=== PATIENT | female | born 1995 | race Caucasian/White ===

== ENCOUNTER 2019-11-07 04:00 | Emergency (ER) | payer OTHER ==
[2019-11-07] MEDS ORDERED: SODIUM CHLORIDE 0.9% 500 ML 500 ML IV STA (04:31)
[2019-11-07 05:09] LABS: Basophils # (A) 0.1 k/uL (0-0.2); Basophils % (A) 0 %; Eosinophils # (A) 0.4 k/uL (0-0.7); Eosinophils % (A) 3 %; HCT 48.7 % (34.0-46.0); HGB 16.4 gm/dL (11.4-16.0); Lymphocytes # (A) 3.1 k/uL (1.0-4.8); Lymphocytes % (A) 24 %; MCH 31.7 pg (25.0-35.0); MCHC 33.8 g/dL (31.0-37.0); Mean Platelet Volume 9.3; Monocytes # (A) 0.8 k/uL (0-1.0); Monocytes % (A) 6 %; Neutrophils # (A) 8.7 k/uL (1.3-7.7); Neutrophils % (A) 66 %; Platelet Count 219 k/uL (150-450); RBC 5.19 m/uL (3.80-5.40); WBC 13.3 k/uL (3.8-10.6)
[2019-11-07 05:18] LABS: ALT 32 U/L (4-34); AST 34 U/L (14-36); African American GFR (CKD) >90 (>60 ml/min/1.73 sqM); Albumin 4.9 g/dL (3.5-5.0); Alkaline Phosphatase 71 U/L (38-126); Anion Gap 11 mmol/L; Blood Urea Nitrogen 12 mg/dL (7-17); Calcium 9.8 mg/dL (8.4-10.2); Carbon Dioxide 24 mmol/L (22-30); Chloride 103 mmol/L (98-107); Glucose 111 mg/dL (74-99); Non-African American GFR(CKD) >90 (>60 ml/min/1.73 sqM); Potassium 3.7 mmol/L (3.5-5.1); Sodium 138 mmol/L (137-145); Total Protein 8.4 g/dL (6.3-8.2)
[2019-11-07 05:49] LABS: Appearance,Urine Cloudy (Clear); Bilirubin,Urine Negative (Negative); Blood,Urine Large (Negative); Color,Urine Red; Glucose,Urine (UA) Negative (Negative); Ketones,Urine Trace (Negative); Leukocyte Esterase,Urine Small (Negative); Mucus,Urine Moderate /hpf; Nitrite,Urine Negative (Negative); PH, Urine 5.5 (5.0-8.0); Protein,Urine 1+ (Negative); RBC,Urine >182 /hpf (0-5); Specific Gravity,Urine 1.028 (1.001-1.035); Squamous Epithelial Cell,Urine 4 /hpf (0-4); Urobilinogen,Urine <2.0 mg/dL (<2.0); WBC,Urine 165 /hpf (0-5)
--- NOTE | 2019-11-07 06:35 | XR ---
EXAMINATION TYPE: XR chest 1V portable DATE OF EXAM: 11/07/2019 COMPARISON: NONE HISTORY: Fever TECHNIQUE: FINDINGS: Heart and mediastinum are normal. Lungs are clear. Diaphragm is normal. Bony thorax appears normal. IMPRESSION: Normal chest.
--- NOTE | 2019-11-07 06:37 | ED ---
Nausea/Vomiting/Diarrhea HPI - General Chief complaint: Nausea/Vomiting/Diarrhea Stated complaint: NVD, Fever Time Seen by Provider: 11/07/19 04:25 Source: patient Mode of arrival: ambulatory Limitations: no limitations - History of Present Illness Initial comments: This patient is a 23-year-old woman who presents with a number of complaints that it started getting worse over the past couple of days. Patient states she has been having some body aches mainly the lower abdomen and back. She has also had a bit of coughing. She has had a few episodes of vomiting and diarrhea. She states she may have had a fever is not sure. 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 MD complaint: nausea, vomiting, abdominal pain -: days(s) Description of Vomiting: food contents Associated Abdominal Pain: Yes Location: LLQ, RLQ Radiation: none Severity: moderate Quality: cramping, aching Consistency: constant Improves with: none Worsens with: none Associated Symptoms: cough - Related Data Previous Rx's Medication Instructions Recorded Cephalexin [Keflex] 500 mg PO Q6HR #28 cap 11/07/19 Allergies Allergy/AdvReac Type Severity Reaction Status Date / Time No Known Allergies Allergy Verified 11/07/19 04:06 Review of Systems ROS Statement: Those systems with pertinent positive or pertinent negative responses have been documented in the HPI. ROS Other: All systems not noted in ROS Statement are negative. Constitutional: Reports: fever. Denies: chills, weakness Respiratory: Reports: cough. Denies: dyspnea, wheezes, hemoptysis Cardiovascular: Denies: chest pain Gastrointestinal: Reports: abdominal pain, nausea, vomiting, diarrhea. Denies: constipation, melena, hematochezia Genitourinary: Reports: frequency. Denies: dysuria, discharge, abnormal menses Musculoskeletal: Denies: back pain Skin: Denies: rash Neurological: Denies: headache, weakness, numbness Past Medical History Past Medical History: No Reported History History of Any Multi-Drug Resistant Organisms: None Reported Past Surgical History: No Surgical Hx Reported Past Psychological History: No Psychological Hx Reported Smoking Status: Current every day smoker Past Alcohol Use History: Occasional Past Drug Use History: None Reported General Exam Limitations: no limitations General appearance: alert, in no apparent distress Head exam: Present: atraumatic, normocephalic Eye exam: Present: normal appearance. Absent: scleral icterus, conjunctival injection ENT exam: Present: normal oropharynx Neck exam: Present: normal inspection Respiratory exam: Present: normal lung sounds bilaterally. Absent: respiratory distress, wheezes, rales, rhonchi, stridor Cardiovascular Exam: Present: regular rate, normal rhythm, normal heart sounds. Absent: systolic murmur, diastolic murmur, rubs, gallop GI/Abdominal exam: Present: soft. Absent: distended, tenderness, guarding, rebound, rigid, mass, pulsatile mass Extremities exam: Present: normal inspection, normal capillary refill. Absent: pedal edema, calf tenderness Back exam: Present: normal inspection. Absent: CVA tenderness (R), CVA tenderness (L) Neurological exam: Present: alert Skin exam: Present: warm, dry, intact, normal color. Absent: rash Course Vital Signs 11/07/19 11/07/19 11/07/19 04:02 06:55 07:38 Temperature 98.3 F 98 F 97.7 F Pulse Rate 83 72 70 Respiratory 20 16 18 Rate Blood Pressure 151/91 127/78 123/76 O2 Sat by Pulse 99 96 97 Oximetry Medical Decision Making - Medical Decision Making Patient is 23-year-old woman with a number of complaints found to have urinary tract infection. Started antibiotics here, discussed appropriate further care and follow-up as well as return parameters. - Lab Data Result diagrams: 11/07/19 04:59 11/07/19 04:59 Lab Results 11/07/19 11/07/19 11/07/19 Range/Units 04:59 04:59 05:32 WBC 13.3 H (3.8-10.6) k/uL RBC 5.19 (3.80-5.40) m/uL Hgb 16.4 H (11.4-16.0) gm/dL Hct 48.7 H (34.0-46.0) % MCV 94.0 (80.0-100.0) fL MCH 31.7 (25.0-35.0) pg MCHC 33.8 (31.0-37.0) g/dL RDW 12.0 (11.5-15.5) % Plt Count 219 (150-450) k/uL Neutrophils % 66 % Lymphocytes % 24 % Monocytes % 6 % Eosinophils % 3 % Basophils % 0 % Neutrophils # 8.7 H (1.3-7.7) k/uL Lymphocytes # 3.1 (1.0-4.8) k/uL Monocytes # 0.8 (0-1.0) k/uL Eosinophils # 0.4 (0-0.7) k/uL Basophils # 0.1 (0-0.2) k/uL Sodium 138 (137-145) mmol/L Potassium 3.7 (3.5-5.1) mmol/L Chloride 103 (98-107) mmol/L Carbon Dioxide 24 (22-30) mmol/L Anion Gap 11 mmol/L BUN 12 (7-17) mg/dL Creatinine 0.64 (0.52-1.04) mg/dL Est GFR (CKD-EPI)AfAm >90 (>60 ml/min/1.73 sqM) Est GFR (CKD-EPI)NonAf >90 (>60 ml/min/1.73 sqM) Glucose 111 H (74-99) mg/dL Calcium 9.8 (8.4-10.2) mg/dL Total Bilirubin 1.0 (0.2-1.3) mg/dL AST 34 (14-36) U/L ALT 32 (4-34) U/L Alkaline Phosphatase 71 (38-126) U/L Total Protein 8.4 H (6.3-8.2) g/dL Albumin 4.9 (3.5-5.0) g/dL Urine Color Urine Appearance (Clear) Urine pH (5.0-8.0) Ur Specific Hilton (1.001-1.035) Urine Protein (Negative) Urine Glucose (UA) (Negative) Urine Ketones (Negative) Urine Blood (Negative) Urine Nitrite (Negative) Urine Bilirubin (Negative) Urine Urobilinogen (<2.0) mg/dL Ur Leukocyte Esterase (Negative) Urine RBC (0-5) /hpf Urine WBC (0-5) /hpf Ur Squamous Epith Cells (0-4) /hpf Urine Mucus (None) /hpf Urine HCG, Qual (Not Detectd) Coronavirus (PCR) Not Detected (Not Detectd) 11/07/19 11/07/19 Range/Units 05:35 05:35 WBC (3.8-10.6) k/uL RBC (3.80-5.40) m/uL Hgb (11.4-16.0) gm/dL Hct (34.0-46.0) % MCV (80.0-100.0) fL MCH (25.0-35.0) pg MCHC (31.0-37.0) g/dL RDW (11.5-15.5) % Plt Count (150-450) k/uL Neutrophils % % Lymphocytes % % Monocytes % % Eosinophils % % Basophils % % Neutrophils # (1.3-7.7) k/uL Lymphocytes # (1.0-4.8) k/uL Monocytes # (0-1.0) k/uL Eosinophils # (0-0.7) k/uL Basophils # (0-0.2) k/uL Sodium (137-145) mmol/L Potassium (3.5-5.1) mmol/L Chloride (98-107) mmol/L Carbon Dioxide (22-30) mmol/L Anion Gap mmol/L BUN (7-17) mg/dL Creatinine (0.52-1.04) mg/dL Est GFR (CKD-EPI)AfAm (>60 ml/min/1.73 sqM) Est GFR (CKD-EPI)NonAf (>60 ml/min/1.73 sqM) Glucose (74-99) mg/dL Calcium (8.4-10.2) mg/dL Total Bilirubin (0.2-1.3) mg/dL AST (14-36) U/L ALT (4-34) U/L Alkaline Phosphatase (38-126) U/L Total Protein (6.3-8.2) g/dL Albumin (3.5-5.0) g/dL Urine Color Red Urine Appearance Cloudy H (Clear) Urine pH 5.5 (5.0-8.0) Ur Specific Hilton 1.028 (1.001-1.035) Urine Protein 1+ H (Negative) Urine Glucose (UA) Negative (Negative) Urine Ketones Trace H (Negative) Urine Blood Large H (Negative) Urine Nitrite Negative (Negative) Urine Bilirubin Negative (Negative) Urine Urobilinogen <2.0 (<2.0) mg/dL Ur Leukocyte Esterase Small H (Negative) Urine RBC >182 H (0-5) /hpf Urine WBC 165 H (0-5) /hpf Ur Squamous Epith Cells 4 (0-4) /hpf Urine Mucus Moderate H (None) /hpf Urine HCG, Qual Not Detected (Not Detectd) Coronavirus (PCR) (Not Detectd) Disposition Clinical Impression: Urinary tract infection Disposition: HOME SELF-CARE Condition: Fair Instructions (If sedation given, give patient instructions): Urinary Tract Infection in Women (DC) Prescriptions: Cephalexin [Keflex] 500 mg PO Q6HR #28 cap Is patient prescribed a controlled substance at d/c from ED?: No Referrals: None,Stated [Primary Care Provider] - 1-2 days
[2019-11-07 07:39] VITALS: BP 123/76; PULSE 70; RESP 18; TEMP 97.7
== END 2019-11-07 07:39 | disposition home or self-care (01) ==
LOC: EC 04:00
DX: Z03.818 Encounter for observation for suspected exposure to other biological agents ruled out (principal); N39.0 Urinary tract infection, site not specified; R05 Cough; R19.7 Diarrhea, unspecified; F17.200 Nicotine dependence, unspecified, uncomplicated
CPT/HCPCS: 36415; 80053; 85025; 81001; 81025; 87635; 71045; 96365; 96361; 99284; J0696